=== PATIENT | female | born 1995 | race Hispanic/Latino ===

== ENCOUNTER 2020-02-12 01:52 | Emergency (ER) | payer SELFPAY ==
[~2020-02-12] VITALS: Ht 160 cm; Wt 52.2 kg
--- OUTSIDE RECORDS SUMMARY | 2020-02-12 01:55 | XMS REPORT | Continuity of Care Document ---
Author Author [facility] t Organization [facility] Address [address] [place] [address] Phone Unavailable Care Team Providers Care Import/Export Agent Name Role Phone Unavailable Unavailable Payers Payer Name Policy Type Policy Number Effective Date Expiration Date S ource Problems This patient has no known problems. Allergies, Adverse Reactions, Alerts Allergy Name Allergy Type Status Severity Reaction(s) Onset Date Inacti ve Date Treating Clinician Comments Source No Known Allergies DA Active U 2019-05-12 00:00:00 [facility] No Known Allergies DA Active U 2017-05-23 00:00:00 [facility] Medications This patient has no known medications. Procedures This patient has no known procedures. Results Test Description Test Time Test Comments Results Result Comments Source HGB HCT 2019-05-28 07:23:00 Test Item HEMOGLOBIN (test code = HGB) 9.8 g/dL 10.7-13.9 L HEMATOCRIT (test code = HCT) 30.6 % 32.1-42.1 L AG HEPATITIS B [id number] 13:42:00* Test Item Value Reference Range Interpretation Comments AG HEPATITIS B SURFACE (test code = HBSAG) NONREACTIVE NONREACTIVE IS CONSENT FORM SIGNED FOR HIV TESTING? YAB HEPATITIS C [id number] 13:42:00* Test Item Value Reference Range Interpretation Comments AB HEPATITIS C (test code = HCVAB) NONREACTIVE NONREACTIVE SIGNAL TO CUTOFF (test code = CUTOFF) 0.12 <0.80 N IS CONSENT FORM SIGNED FOR HIV TESTING? YAB [id number] 13:42:00* Test Item Value Reference Range Interpretation Comments AB TREPONEMA (test code = TREPAB) NONREACTIVE NONREACTIVE IS CONSENT FORM SIGNED FOR HIV TESTING? YAB HIV 1 13:42:00* Test Item Value Reference Range Interpretation Comments AB HIV 1 2 (test code = [id number]) NONREACTIVE NONREACTIVE Done by [employer] 4th Gen HIV Ag/Ab Combo Screen IS CONSENT FORM SIGNED FOR HIV TESTING? YAG HEPATITIS B [id number] 13:07:00* Test Item Value Reference Range Interpretation Comments AG HEPATITIS B SURFACE (test code = HBSAG) NONREACTIVE NONREACTIVE IS CONSENT FORM SIGNED FOR HIV TESTING? YAB HEPATITIS C [id number] 13:07:00* Test Item Value Reference Range Interpretation Comments AB HEPATITIS C (test code = HCVAB) NONREACTIVE SIGNAL TO CUTOFF (test code = CUTOFF) <0.80 IS CONSENT FORM SIGNED FOR HIV TESTING? YAB [id number] 13:07:00* Test Item Value Reference Range Interpretation Comments AB TREPONEMA (test code = TREPAB) NONREACTIVE NONREACTIVE IS CONSENT FORM SIGNED FOR HIV TESTING? YAB HIV 1 13:07:00* Test Item Value Reference Range Interpretation Comments AB HIV 1 2 (test code = [id number]) NONREACTIVE IS CONSENT FORM SIGNED FOR HIV TESTING? YCBC W/AUTO [id number] 12:06:00* Test Item Value Reference Range Interpretation Comments WHITE BLOOD CELL (test code = WBC) 7.4 K/mm3 6.6-12.1 N RED BLOOD CELL (test code = RBC) 3.55 M/mm3 3.45-5.01 N HEMOGLOBIN (test code = HGB) 10.5 g/dL 10.7-13.9 L HEMATOCRIT (test code = HCT) 33.2 % 32.1-42.1 N MEAN CELL VOLUME (test code = MCV) 94 fL 84.1-94.8 N MEAN CELL HGB (test code = MCH) 29.6 pg 27-35 N MEAN CELL HGB CONCETRATION (test code = MCHC) 31.6 gm/dL 32.2-34. 1 L RED CELL DISTRIBUTION WIDTH (test code = RDW) 15.8 % 12.4-16. 5 N PLATELET COUNT (test code = PLT) 231 K/mm3 133-385 N IMMATURE PLATELET FRACTION (test code = IPF) 0.0 % 0.0-10.8 N MEAN PLATELET VOLUME (test code = MPV) 9.7 fl 9.1-12.7 N NEUTROPHIL % (test code = NT%) 61.9 % 56.5-79.4 N LYMPHOCYTE % (test code = LY%) 25.9 % 14.3-34.3 N MONOCYTE % (test code = MO%) 5.5 % 5.1-10.4 N EOSINOPHIL % (test code = EO%) 5.5 % 0.1-3.0 H BASOPHIL % (test code = BA%) 0.4 % 0.1-1.0 N NEUTROPHIL # (test code = NT#) 4.6 K/mm3 LYMPHOCYTE # (test code = LY#) 1.9 K/mm3 MONOCYTE # (test code = MO#) 0.4 K/mm3 EOSINOPHIL # (test code = EO#) 0.41 K/mm3 BASOPHIL # (test code = BA#) 0.0 K/mm3 RBC MORPHOLOGY REQUIRED (test code = RBCM) NORMAL NORMAL PLATELET MORPHOLOGY REQUIRED (test code = PLTMR) NORMAL GE L - US FET BIO PH VT W/O [id number] 14:46:00 Patient Name: NENA TOMLINSONLEY Unit No: [id number] EXAMS: CPT CODE: [id number] US FET BIO PH VT W/O NST [address] [facility] [address] [place] [address] BIOPHYSICAL PROFILE ULTRASOUND REPORT Pat. Name: CAMILA TOMLINSON La t. No: [id number] Study Date: 05/13/2019 1:31pm , Age: [birth year], 23 Pregnancies: 3, Para 1 LMP: Unknown GA Selected: 37 w0d (From Known E) GONZALO: 06/03/2019 Referring MD: SOUMYA MARTINEZ Son ographer: Laura Yip RDMS, RVT CPT4: [id number] Admitting MD: PIPPA BARRY Hist/Ind: S/P FALL SCAN 1 Heart Rate: 142 bpm A mniotic Fluid Index: 18.0cm (07.5-24.4) Q1: 4.9cm Q2: 2.6cm Q3: 4.5cm Q4: 6. 0cm Biophysical Profile: 04/18 Breathin Tone: 2 Movement: 2 AFV: 2 MAT ERNAL ANATOMY ----- Ovaries LxHxW (cm) Right 4.4 x 2.5 x 3.3 Vol: 19.0cc CLINICAL SUMMARY Type of Ges tation: Chu Intrauterine in vertex presentation. mot ion and organs seen: heart motion seen body and limb mov ements observed tone noted breathing movements observed Placental location: Anterior Placental maturity : Grade 3 There is no evidence of placenta previa. Amniotic fluid volume is normal. Uterus and adnexa: No significant abnormality is seen. There is no sonograp hic evidence of abruption. Biophysical Profile Movement score i s 2. Breathing score is 2. Tone score is 2. Amniotic Fluid score is 2. Total Scores 8/8. [facility] NAME: CAMILA TOMLINSON Radiology Department PHYS: Soumya Kearns MD [address] : 1995 AGE: 23 SEX: F [place], [place] [address] LOC: [place].3052 A PHONE #: [phone] EXAM DATE: 05/13/2019 STATUS: ADM IN FAX #: [phone] RAD NO: Page 1 Signed Report (CONTINUED) Patient Name: CAMILA TOMLINSON Unit No: [id number] EXAMS: CPT CODE: [id number] US FET BIO PH VT W/O NST 81669 <Continued> Thank you for allowing us to participate in the care of this patient. Lucy Randall M.D. Electronic Signature 05/13/2019 02:46pm at 1446 Reported and signed by: Lucy Randall MD CC: Pippa Sofia MD; Soumya Martinez MD Technologist: Laura Yip RDMS, RVT Probe: Trnscrbd D/ (1446) Mariela Orig Print D/T: S: 05/13/2019 (1446) [facility] NAME: CAMILA TOMLINSON Radiology Department PHYS: Soumya Kearns MD [address] : 1995 AGE: 23 SEX: F [place], [place] [address] LOC: [place].2 A PHONE #: [phone] EXAM DATE: 05/13/2019 STATUS: ADM IN FAX #: [phone] RAD NO: Page 2 Signed Report Patient Name: CAMILA FIELDS Unit No: [id number] EXAMS: CPT CODE: [id number] US FET BIO PH VT W/O NST 78395 <Continued> [facility] NAME: CAMILA TOMLINSON Radiology Department PHYS: Soumya Kearns MD [address] : 1995 AGE: 23 SEX: F [place], [place] [address] LOC: F.3052 A PHONE #: [phone] EXAM DATE: 05/13/2019 STATUS: ADM IN FAX #: [phone] RAD NO: Page 3 Signed Report PROTHROMBIN [id number] 11:34:00* Test Item Value Reference Range Interpretation Comments PROTHROMBIN TIME PATIENT (test code = PTP) 10.9 secs 10.4-12.4 N INTERNATIONAL NORMAL [id number] 11:34:00* Test Item Value Reference Range Interpretation Comments INTERNATIONAL NORMAL RATIO (test code = INR) 0.98 The INR is to be used only for monitoring oral anticoagulanttherapy. INDICATION INR VALUE 1. Prophylaxis including high risk surgery 2.0 - 2.52. Deep venous thrombosis. Pulmonary embolism. Atrial fibrillation or bioprosthetic heart valves 2.0 - 3.03. Mechanical heart valves or recurrent systemic embolism. 3.0 - 3.5 THROMBOPLASTIN TIME [id number] 11:34:00* Test Item Value Reference Range Interpretation Comments THROMBOPLASTIN TIME PARTIAL (test code = PTT) 25.4 secs 22-38 N [id number] 11:34:00* Test Item Value Reference Range Interpretation Comments FIBRINOGEN (test code = FIB) 483 mg/dL 309-518 N CBC W/AUTO [id number] 11:16:00* Test Item Value Reference Range Interpretation Comments WHITE BLOOD CELL (test code = WBC) 10.0 K/mm3 6.6-12.1 N RED BLOOD CELL (test code = RBC) 3.56 M/mm3 3.45-5.01 N HEMOGLOBIN (test code = HGB) 10.6 g/dL 10.7-13.9 L HEMATOCRIT (test code = HCT) 33.4 % 32.1-42.1 N MEAN CELL VOLUME (test code = MCV) 94 fL 84.1-94.8 N MEAN CELL HGB (test code = MCH) 29.8 pg 27-35 N MEAN CELL HGB CONCETRATION (test code = MCHC) 31.7 gm/dL 32.2-34. 1 L RED CELL DISTRIBUTION WIDTH (test code = RDW) 14.9 % 12.4-16. 5 N PLATELET COUNT (test code = PLT) 269 K/mm3 133-385 N IMMATURE PLATELET FRACTION (test code = IPF) 0.0 % 0.0-10.8 N MEAN PLATELET VOLUME (test code = MPV) 9.6 fl 9.1-12.7 N NEUTROPHIL % (test code = NT%) 76.6 % 56.5-79.4 N LYMPHOCYTE % (test code = LY%) 16.2 % 14.3-34.3 N MONOCYTE % (test code = MO%) 4.8 % 5.1-10.4 L EOSINOPHIL % (test code = EO%) 1.2 % 0.1-3.0 N BASOPHIL % (test code = BA%) 0.3 % 0.1-1.0 N NEUTROPHIL # (test code = NT#) 7.7 K/mm3 LYMPHOCYTE # (test code = LY#) 1.6 K/mm3 MONOCYTE # (test code = MO#) 0.5 K/mm3 EOSINOPHIL # (test code = EO#) 0.12 K/mm3 BASOPHIL # (test code = BA#) 0.0 K/mm3 RBC MORPHOLOGY REQUIRED (test code = RBCM) NORMAL NORMAL PLATELET MORPHOLOGY REQUIRED (test code = PLTMR) NORMAL GE L
[2020-02-12] MEDS ORDERED: DIPHENHYDRAMINE HCL 25 MG CAP PO ONE (02:00)
[2020-02-12] MEDS ORDERED: METHYLPREDNISOLONE SOD SUCC 125 MG/2ML VIAL IM ONE (02:00)
--- NOTE | 2020-02-12 02:05 | Emergency Department Note ---
History of Present Illnes History of Present Illness Chief Complaint: General Medicine Complaints History of Present Illness This is a 24 year old female C/O GENERALIZED HIVES TO ENTIRE BODY, THAT STARTED 2 DAYS AGO, ONLY THING SHE CAN THINK OF THAT MAY HAVE BEEN DIFFERENT FOOD INTAKE WAS PISTACHIOS AND SOME GRANOLA WITH PEANUTS . Historian: Patient Arrival Mode: Car Onset (how long ago): day(s) (2) Location: GENERALIZED Quality: HIVES Radiation: non-radiation Severity: moderate Onset quality: sudden Duration (how long): day(s) (2) Timing of current episode: constant Progression: waxing and waning Chronicity: new Context: recent illness, recent surgery Relieving factors: other (BENADRYL HELPS BUT THEN IT GETS WORSE AGAIN) Associated symptoms: denies other symptoms Treatments prior to arrival: other (BENADRYL YESTERDAY) Past Medical/Family History Physician Review I have reviewed the patient's past medical and family history. Any updates have been documented here. Past Medical History Recent Fever: No Clinical Suspicion of Infectio: No New/Unexplained Change in Ment: No Past Medical History: None Past Surgical History: None Social History Smoking Cessation: Never Smoker Alcohol Use: Occasional Any Illegal Drug Use: No Other Last Tetanus: UNK Review of Systems Review of Systems Constitutional: no symptoms EENTM: no symptoms Cardiovascular: no symptoms Respiratory: no symptoms Gastrointestinal: no symptoms Genitourinary: no symptoms Musculoskeletal: no symptoms Neurological: no symptoms Psychological: no symptoms Endocrine: no symptoms Hematological/Lymphatic: no symptoms Review of other systems All other systems reviewed and negative. Physical Exam Related Data Allergies: Coded Allergies: No Known Allergies (Unverified , 02/12/20) Triage Vital Signs Vital Signs Date Time Temp Pulse Resp B/P (MAP) Pulse Ox O2 Delivery O2 Flow Rate FiO2 02/12/20 01:54 97.2 75 20 118/84 100 Vital signs reviewed: Yes Physical Exam CONSTITUTIONAL Constitutional: well-developed, well-nourished HENT HENT: normocephalic, atraumatic, oropharynx clear/moist, nose normal HENT L/R: left ext ear normal, right ext ear normal EYES Eyes: PERRL, conjunctivae normal NECK Neck: ROM normal PULMONARY Pulmonary: effort normal, breath sounds normal CARDIOVASCULAR Cardiovascular: regular rhythm, heart sounds normal, capillary refill normal, normal rate GASTROINTESTINAL Abdominal: soft, nontender, bowel sounds normal GENITOURINARY Genitourinary: exam deferred SKIN Skin: warm, dry, other (GENERALIZED HIVES) MUSCULOSKELETAL Musculoskeletal: ROM normal NEUROLOGICAL Neurological: alert, oriented x 3, no gross motor or sensory deficits PSYCHOLOGICAL Psychological: mood/affect normal, judgement normal Critical Care Time Subsequent provider I assumed direction of critical care for this patient from another provider of my specialty. Assessment & Plan Reassessment Reassessment time: 02:38 Reassessment HIVES ALMOST RESOLVED AT THIS TIME Assessment & Plan Final Impression: (1) ALLERGIC URTICARIA Assessment & Plan PT WITH HIVES STARTING MONDAY, STATES ATE PISTACHIOS AND GRANOLA WITH PEANUTS IN IT THAT DAY SOLU MEDROL 125 MG IM ORDERED BENADRYL 50 MG PO ORDERED Depart Disposition: HOME, SELF-CARE Last Vital Signs Date Time Temp Pulse Resp B/P (MAP) Pulse Ox O2 Delivery O2 Flow Rate FiO2 02/12/20 01:54 97.2 75 20 118/84 100 ALEXYS AMADOR MD Feb 12, 2020 02:05
[2020-02-12] MEDS ORDERED: METHYLPREDNISOLONE SOD SUCC 125 MG/2ML VIAL ONE (02:06)
== END 2020-02-12 02:50 | disposition home or self-care (01) ==
LOC: ER 01:52
DX: L50.0 Allergic urticaria (principal)
CPT/HCPCS: 99283; J2930